=== PATIENT | male | born 1950 | race Caucasian/White ===

== ENCOUNTER 2019-06-06 12:49 | Outpatient (RCR) | payer MEDICARE, SELFPAY | END 2019-06-16 23:59 | disposition home or self-care (01) | LOC: MST 12:49 | PROVIDERS: PCP Family Medicine; Referring Provider Nurse Practitioner Family; Visit Provider Nurse Practitioner Family | DX: I69.391 Dysphagia following cerebral infarction (principal) | CPT/HCPCS: 92526; 92610 ==

== ENCOUNTER 2019-06-19 06:00 | Outpatient (RCR) | payer MEDICARE, SELFPAY | END 2019-07-15 23:59 | disposition home or self-care (01) | LOC: MST 06:00 | PROVIDERS: PCP Family Medicine; Referring Provider Nurse Practitioner Family; Visit Provider Nurse Practitioner Family | DX: I69.391 Dysphagia following cerebral infarction (principal); R13.12 Dysphagia, oropharyngeal phase | CPT/HCPCS: 92526 ==